=== PATIENT | male | born 1980 | race American Indian/Alaskan Native ===

== ENCOUNTER 2017-01-16 21:55 | Emergency (ER) | payer OTHER ==
[2017-01-16] MEDS ORDERED: CATAPRES PO ONE (22:09)
[2017-01-17] MEDS ORDERED: NORCO 7.5/325 PO ONE (00:24)
[2017-01-17 00:57] VITALS: BP 156/88
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
== END 2017-01-17 00:58 | disposition home or self-care (01) ==
LOC: ED 21:55
DX: M54.41 Lumbago with sciatica, right side (principal); V89.2XXA Person injured in unspecified motor-vehicle accident, traffic, initial encounter; Y93.89 Activity, other specified; Y99.8 Other external cause status; Y92.89 Other specified places as the place of occurrence of the external cause
CPT/HCPCS: 99283